=== PATIENT | female | born 1985 | race Caucasian/White ===

== ENCOUNTER → 2017-10-20 14:14 | Outpatient (CLI) | payer OTHER, SELFPAY ==
[2017-10-20 16:36] LABS: GTT (PREG) 1 Hour PP 50gm Dose 105 mg/dL (76-139)
== END ==
PROVIDERS: PCP Family Medicine; Visit Provider Family Medicine
DX: Z34.90 Encounter for supervision of normal pregnancy, unspecified, unspecified trimester (principal)
CPT/HCPCS: 36415; 82950; 85014

== ENCOUNTER → 2017-12-07 15:19 | Outpatient (CLI) | payer OTHER, SELFPAY ==
[2017-12-08 14:37] LABS: Strep Grp B PCR POS for Grp B Strep
== END ==
PROVIDERS: PCP Family Medicine; Visit Provider Family Medicine
DX: Z3A.36 36 weeks gestation of pregnancy (principal)
CPT/HCPCS: 87653

== ENCOUNTER 2018-01-04 01:20 | Inpatient (IN) | payer OTHER, SELFPAY ==
--- NOTE | 2018-01-04 02:13 | PM.OBHP.1 ---
OB HPI Date/Time Date of admission: 01/04/18 Date Patient Seen: 01/04/18 Time Patient Seen: 01:40 History of Present Condition Chief complaint: LABOR AND DELIVERY : 2 Para: 1 Estimated Date of Delivery: 12/30/17 Estimated Gestational Age (weeks): 40w5d Narrative: Stephanie Vasquez is a 32 year old at 40+5 weeks gestation. Patient presented to the center in active labor and was complete on admission. She received regular care without complications. History of Present care: good care (Care initiated at 12 weeks with 9 visits. Weight gain 27 lbs. ) Dating criteria: LMP confirmed by 1st trimester US Ultrasounds: normal mid trimester US Obstetrical complications: none Medical complications: none Preadmission Labs Blood type: AB (+) positive -: Antibody screen: negative, GBS status: positive, HBsAG: negative, HIV: negative, HSV 1: positive, HSV 2: negative and RPR/VDLR: negative -: Chlamydia screen: not detected and Gonorrhea screen: not detected -: Rubella: immune and Varicella: immune HCT: 38.5 Quad screen: Normal Urine: Negative 1 hr GTT: 105 Evaluation Evaluation Baseline heart rate: 150 Variability: Moderate (11-25) monitor accelerations: Present monitor decelerations: Absent Uterine Contraction Intensity: Strong/Firm Cervical dilation (cm): 10 Cervical effacement (%): 100 station: +1 PFSH Medical History Infertility (Chronic 2013) Neck pain (Chronic 2007) Severe depression (Chronic 2015) Shoulder pain (Chronic 2007) Tinea versicolor (Resolved) Surgical History Anesthesia complication (Resolved) History of eyelid surgery (Resolved ~2008) History of third molar tooth extraction (Resolved 2010) Family History Father Age: 65 Essential hypertension Mixed hyperlipidemia Grandfather Age: 86 Skin cancer Diabetes mellitus Heart disease Grandmother Colon cancer Grandmother MVA (motor vehicle accident) Grandfather Dementia Brother No problems noted. Mother No problems noted. Sister No problems noted. Sister No problems noted. 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 Status: Never smoker substance use type: does not use Meds Home Medications Medication Instructions Recorded Confirmed Type Breast Pump - Double Electric 1 dev SEE INSTRUCTIONS #1 12/18/15 01/04/18 Rx vitamin-ferrous fumarate 1 cap PO QDAY #90 cap 12/16/17 01/04/18 Rx 65 mg iron-folic acid 1 mg capsule Allergies Allergy/AdvReac Type Severity Reaction Status Date / Time egg Allergy Verified 01/04/18 04:22 Review of Systems Review of Systems All systems reviewed & are unremarkable except as noted in HPI and below Exam Const General: cooperative HENMT Head: normal to inspection Ears: hearing grossly normal bilaterally Nose: external nose normal Face and sinus: normal facial exam Eyes General: appearance normal, both eyes and all related structures Neck Neck: normal visual inspection Resp Effort & Inspection: normal respiratory effort and able to speak in complete sentences Cardio Rate: regular rate Rhythm: regular rhythm Extrem General: normal to inspection and no pedal edema Objective Labs Result Diagrams: 01/04/18 06:30 Assessment and Plan (1) 40 weeks gestation of : Current visit: Yes Status: Acute Plan: Plan: 32 year old at 40+5 weeks gestation in active labor. GBS+ though no time for IV for antibiotics. Patient delivered shortly after arrival in center.
--- NOTE | 2018-01-04 02:24 | PM.OBPRVD ---
Delivery date: 01/04/18 Intrapartal events: None Induction method: none Delivery monitor: external FHT Route of delivery: Laceration description: Vaginal - 1st Degree Estimated blood loss (mL): 200 Anesthesia type: None Narrative: VAGINAL DELIVERY NOTE BRIEF HISTORY: Patient is a 32-year-old at 40+5 weeks who gave on 01/04/18 at 01:55. BRAD: 12/30/17 Hospital problems: 40 weeks of GBS positive STAGE I: Labor Patient reports contractions began at home at approximately 11:00 p.m. on 01/03/18. Patient presented to the center and was found to be complete on admission at 1:31 a.m. on 01/04/18. Spontaneous rupture of membranes occurred at the time of delivery at 1:55 a.m.. Amniotic fluid was clear. Patient did not receive prophylactic antibiotics for GBS and she did not have an IV prior to delivery. Stage I duration: 2 hr and 31 min. STAGE II: Delivery Stage II duration: 24 min. Spontaneous vaginal delivery occurred at 1:55 a.m. on 01/04/18. Presentation was YEN. scores were nine at one minute and nine at five minutes. Notes: Vigorous male. No resuscitation required. STAGE III: Placenta/Cord Placenta delivered spontaneously after active management with a three vessel cord and intact at 2:02 a.m. on 01/04/18. There was one very small first-degree vaginal laceration at the posterior fourchette which was not repaired. EBL: 200 mL. The uterine fundus was firm to palpation after delivery. Hemostasis achieved. Needle and sponge counts were correct. The vagina was inspected and no items were left in situ.
[2018-01-04 04:09] VITALS: BP 112/64
[2018-01-04] MEDS: IBUPROFEN 600 MG TABLET PO ×3 (05:42→17:58)
[2018-01-04 07:07] LABS: Add Manual Diff / Slide Review NO; Basophils Percent Auto 0.1 % (0-2); Hematocrit 35.6 % (36-46); Hemoglobin 12.2 g/dL (12.0-16.0); Lymphocytes Percent Auto 16.9 % (25-40); Mean Corpuscular HGB Conc 34.4 % (30-36); Mean Corpuscular Hemoglobin 32.1 PG (26-34); Mean Corpuscular Volume 93.4 fL (80-100); Monocytes Percent Auto 4.3 % (3-14); Neutrophils Absolute Auto 11400 /uL (3000-5900); Neutrophils Percent Auto 78.7 % (50-75); Platelet Count 196 X10^3/uL (150-400); Red Blood Cell Count 3.81 X10^6/uL (4.0-5.2); Red Cell Distribution Width 12.8 % (11.6-14.8); White Blood Cell Count 14.5 X10^3/uL (4.5-11.0)
[2018-01-04] MEDS: DOCUSATE 250 MG CAPSULE PO (11:51)
[2018-01-05] MEDS: IBUPROFEN 600 MG TABLET PO ×2 (00:19→08:27)
[2018-01-05] MEDS: DOCUSATE 250 MG CAPSULE PO (08:27)
[2018-01-05 08:52] VITALS: BP 117/76; PULSE 80; RESP 16; TEMP 36.1
--- NOTE | 2018-01-05 10:06 | PM.OBDS.1 ---
Discharge Providers Date of admission: 01/04/18 01:20 Primary care physician: Carmen Hoyt DO Consults: 01/04/18 04:08 Consult to Cert Pharmacy Tech Routine Comment: Discharge provider: Carmen Hoyt DO Summary Date Patient Seen: 01/05/18 Time Patient Seen: 09:29 Hospital Course: Patient is a 32-year-old G2 now P2 who delivered at 40 and 5 weeks gestation on 01/04/18 via precipitous spontaneous vaginal delivery. Patient was complete on admission and delivered a vigorous male at 1:55 a.m.. She was GBS positive however did not receive prophylactic antibiotics due to precipitous delivery. course has been uncomplicated. Bleeding is moderate and decreasing. Pain well controlled with ibuprofen. going well. Patient is voiding and stooling without difficulty. Counseled patient to call for fevers, severe pain or bleeding through more than a pad an hour. Follow-up in clinic in six weeks. Exam Temperature 97.0? blood pressure 117/76 heart rate 80 respirations 16 General: Awake and alert, no acute distress. HEENT: NCAT, EOMI, moist oral mucosa CV: Regular rate and rhythm, no murmurs, rubs or gallops Lungs: CTAB, no wheezes, rales, or rhonchi Abdomen: Soft, nontender; bowel tones active; uterus firm 3 cm below umbilicus Extremities: Warm, no edema, 2+ pedal pulses bilaterally Discharge Diagnosis (1) 40 weeks gestation of : Status: Acute (2) Spontaneous vaginal delivery: Status: Acute Time Spent with Patient Total time spent providing and/or coordinating discharge services: Objective Labs Result Diagrams: 01/04/18 06:30 Discharge Plan Discharge Plan Patient Disposition: Home Discharge Med Rec/Prescriptions Prescriptions: New ibuprofen 600 mg Tablet 600 mg PO Q6HR PRN (Reason: Pain, Mild (1-3)) Qty: 30 RF: 0 docusate sodium 250 mg Capsule 250 mg PO DAILY PRN (Reason: constipation) Qty: 30 RF: 0 Continue Breast Pump - Double Electric 1 dev SEE INSTRUCTIONS Qty: 1 RF: 0 vit-iron fum-folic ac [Mynatal] 65 mg iron- 1 mg capsule 1 cap PO QDAY Qty: 90 RF: 3 Follow up/Referrals: Carmen Hoyt DO [Primary Care Provider] - 6 Weeks (Follow up with Dr. Hoyt at [facility] on Saturday 02/17 @ 11:15 am. ) Provider Discharge Instructions Diet: Diet as Tolerated Skin/Wound/Dressing Care Report to your healthcare provider any signs of infection, such as:: chills, fever, increased pain and unusual drainage Visit Report/Discharge Packet Stand Alone Forms: Discharge: Care Visit Report Forms: Stroke Signs & Symptoms Discharge Data Primary Care Provider: Carmen Hoyt Attending Provider: Carmen Hoyt Admit Date/Time: 01/04/18 01:20
== END 2018-01-05 11:00 | disposition home or self-care (01) | DRG 775 ==
PROVIDERS: Admitting Provider Family Medicine; PCP Family Medicine; Visit Provider Family Medicine
DX: O99.824 Streptococcus B carrier state complicating childbirth (principal); Z3A.40 40 weeks gestation of pregnancy; Z37.0 Single live birth; O62.3 Precipitate labor; O70.0 First degree perineal laceration during delivery
CPT/HCPCS: 59050; 59400; 85025; 86850; 86900; 86901; G0379

== ENCOUNTER → 2018-01-13 13:27 | Outpatient (CLI) | payer OTHER, SELFPAY ==
[2018-01-13 13:59] LABS: Appearance Urine UA CLEAR; Bilirubin Urine UA NEGATIVE (NEGATIVE); Color Urine UA YELLOW; Glucose Urine UA NEGATIVE (Normal); Ketones Urine UA NEGATIVE (NEGATIVE); Leukocyte Esterase Urine UA 2+ (NEGATIVE); Nitrite Urine UA Negative (Negative); Occult Blood Urine UA TRACE-INTACT (Negative); Protein Urine UA NEGATIVE (Negative); Specific Gravity Urine UA <=1.005 (1.000-1.035); Urobilinogen Urine UA 0.2 E.U./dL (0.2); pH Urine UA 6.5 (4.5-8.0)
[2018-01-13 14:10] LABS: Bacteria Urine Occasional (0-1); Culture Indicated Urine Specimen Cultured; RBC Urine 0-1/HPF (0-5/HPF); Squamous Epithelial Cell Urine 0-1 /HPF; WBC Urine 5-10/HPF (0-5/HPF)
== END ==
PROVIDERS: PCP Family Medicine; Visit Provider Family Medicine
DX: R30.0 Dysuria (principal)
CPT/HCPCS: 81001; 87077; 87086; 87147

== ENCOUNTER → 2019-11-22 09:58 | Outpatient (CLI) | payer OTHER, SELFPAY ==
--- NOTE | 2019-11-22 09:59 | DI.US.S_ITS ---
PROCEDURE: US OB <= 14 WEEKS FETUS INDICATIONS: DATING AND VIABILITY OUTSIDE/PRIOR DATING DATA: Last menstrual period (LMP): 09/29/2019. LMP-based estimated date of delivery (BRAD): 07/05/2020 . First dating scan (date and location): 11/22/2019 . Estimated date of delivery (BRAD) from first dating scan: 07/05/2020 . TECHNIQUE: Real-time scanning was performed of the fetus and maternal pelvic organs, with image documentation. Endovaginal scanning was also performed to better visualize the fetus and maternal ovaries. COMPARISON: None. FINDINGS: Embryo: [place]-rump length measures 1.4 cm corresponding to 7 weeks 5 days. Heart rate measures 162 beats per minute. Measurement variability in dating: +/- 4 weeks by LMP, +/- 7 days by mean sac diameter (use before 6 weeks gestation if crown-rump length not able to be measured), +/- 5 days by crown-rump length (up to 8 weeks 6 days gestation), +/- 7 days by crown-rump length (up to 13 weeks 6 days gestation). Maternal organs: Ovaries within normal limits, with left corpus luteal cyst . Limited images through the kidneys demonstrate no hydronephrosis. IMPRESSION: 7 week 5 day single living IUP. Dictated by: Ravinder MCGILL Interpreted: Saranya Perry MD on 11/22/2019 at 11:08 Approved by: Mian Dugan M.D. on 11/23/2019 at 12:21
== END ==
PROVIDERS: PCP Family Medicine; Referring Provider Family Medicine; Visit Provider Family Medicine
DX: Z34.91 Encounter for supervision of normal pregnancy, unspecified, first trimester (principal); Z3A.01 Less than 8 weeks gestation of pregnancy
CPT/HCPCS: 76801; 76817

== ENCOUNTER → 2019-12-05 14:57 | Outpatient (CLI) | payer OTHER, SELFPAY ==
[2019-12-05 16:05] LABS: Add Manual Diff / Slide Review NO; Basophils Absolute Auto 0 /uL (0-100); Basophils Percent Auto 0.3 % (0-2); Eosinophils Absolute Auto 100 /uL (0-450); Hematocrit 37.4 % (36-46); Hemoglobin 12.8 g/dL (12.0-16.0); Lymphocytes Absolute Auto 2700 /uL (1100-4500); Lymphocytes Percent Auto 32.5 % (25-40); Mean Corpuscular HGB Conc 34.3 % (30-36); Mean Corpuscular Hemoglobin 32.6 PG (26-34); Monocytes Absolute Auto 500 /uL (0-900); Neutrophils Absolute Auto 5000 /uL (1500-7000); Neutrophils Percent Auto 60.2 % (50-75); Platelet Count 220 X10^3/uL (150-400); Red Blood Cell Count 3.93 X10^6/uL (4.0-5.2); Red Cell Distribution Width 12.2 % (11.6-14.8); White Blood Cell Count 8.3 X10^3/uL (4.5-11.0)
[2019-12-06 06:36] LABS: RPR Screen Non Reactive (Non Reactive)
[2019-12-06 09:39] LABS: Varicella IgG Antibody 463 index (Immune >165)
[2019-12-06 19:15] LABS: Hepatitis B Surface Antigen NEGATIVE s/c (NEGATIVE); Rubella Antibody IgG 48.9 IU/mL (>15)
[2019-12-06 19:29] LABS: HIV 1 & 2 Ab/Ag 4th Gen Combo NEGATIVE (NEGATIVE); Hep C Virus Ab w/Reflex Quant NEGATIVE s/c (NEGATIVE)
== END ==
PROVIDERS: PCP Family Medicine; Referring Provider Family Medicine; Visit Provider Family Medicine
DX: Z34.90 Encounter for supervision of normal pregnancy, unspecified, unspecified trimester (principal)
CPT/HCPCS: 36415; 80055; 86787; 86803; 86850; 86900; 86901; 87389

== ENCOUNTER → 2020-01-29 11:00 | Outpatient (CLI) | payer OTHER, SELFPAY ==
[2020-02-05 10:08] LABS: AFP, Serum 7.7 ng/mL (.); Calc Gestational Age EDD (.); Estriol, Free <0.02 ng/mL (.); Inhibin A, Dimeric <30.00 pg/mL (.); Inhibin A, MoM See interpretation. (.); Maternal Ethnicity Caucasian (.); Maternal Weight 143 lbs (.); Number of Fetuses No (.); OSBR Risk 1 IN 10000 (.); Results Report (.); Test Results See interpretation. (.); hCG, MoM See interpretation. (.); hCG, Serum <100 mIU/mL (.)
== END ==
PROVIDERS: PCP Family Medicine; Referring Provider Family Medicine; Visit Provider Family Medicine
DX: Z34.90 Encounter for supervision of normal pregnancy, unspecified, unspecified trimester (principal); Z3A.16 16 weeks gestation of pregnancy
CPT/HCPCS: 36415; 82105; 82677; 84702; 86336

== ENCOUNTER → 2020-02-04 09:16 | Outpatient (CLI) | payer OTHER, SELFPAY ==
--- NOTE | 2020-02-04 09:16 | DI.US.S_ITS ---
PROCEDURE: US OB >= 14 WEEKS FETUS INDICATIONS: Anatomy scan OUTSIDE/PRIOR DATING DATA: Last menstrual period (LMP): 09/29/2019 . LMP-based estimated date of delivery (BRAD): 07/05/2020 . First dating scan (date and location): 11/22/19 . Estimated date of delivery (BRAD) from first dating scan: 07/05/2020 . TECHNIQUE: Real-time scanning was performed of the fetus, with image documentation and biometric measurements. COMPARISON: [facility], OB <= 14 WEEKS FETUS, 11/22/2019, 10:12. FINDINGS: General: A single living intrauterine gestation is present. Presentation: Breech. Placenta: Placental position is posterior , without previa. Amniotic fluid index: 12.1 cm cm, normal range is 5-24 cm. Largest pocket measures 3.5 cm. heart rate: 136 beats per minute. Maternal cervical canal: 3.6 cm long. Normal lower limit is 2.5 cm. biometrics: Biparietal diameter: 4.1 cm 18 weeks 2 days Head circumference: 15.2 cm 18 weeks 1 day Abdominal circumference: 13.3 cm 18 weeks 6 days Femur length: 2.8 cm 18 weeks 3 days Estimated gestational age from initial scan: 18 weeks 2 days Composite gestational age from present scan: 18 weeks 3 days Estimated weight and percentile: 248g 65th percentile Measurement variability for biometric dating: +/- 7 days from 14 weeks to 15 weeks 6 days gestation, +/- 10 days from 16 weeks to 21 weeks 6 days gestation, +/- 2 weeks from 22 weeks to 27 weeks 6 days gestation, +/- 3 weeks for 28 weeks gestation or later. weight reference: 4500 g or EFW >90/95% is considered macrosomia or large for gestational age. EFW <10% is small for gestational age. EFW 5% or less is considered intra-uterine growth restriction. Anatomic survey: Neuro: Ventricles are non-dilated at less than 10 mm. Cisterna magna is normal at 3-11 mm. Cerebellum is normal in size and morphology. Nuchal skin fold: Normal at less than 6 mm between 14-21 weeks gestational age. Face: Nose and lips, facial profile are not well seen. Spine: Not well seen. Heart: 4-chambered heart is present, with normal ventricular outflow tracts. Diaphragm: Diaphragm is intact. Stomach: Left-sided stomach is present. Kidneys: No hydronephrosis. Normal is less than 5 mm in 2nd trimester, less than 7 mm in 3rd trimester. Cord: 3-vessel cord has orthotopic insertion. Bladder: Normal in size. Extremities: All 4 extremities identified. IMPRESSION: 1. Single live intrauterine with ultrasound gestational age today of 18 weeks 3 days compared 18 weeks 2 days from initial ultrasound. Ultrasound BRAD is 07/05/20. 2. profile as well as spine are not well seen. Recommend interval follow-up. Dictated by: Nadia Kapoor M.D. on 02/04/2020 at 13:09 Approved by: Nadia Kapoor M.D. on 02/04/2020 at 13:14
== END ==
PROVIDERS: PCP Family Medicine; Referring Provider Family Medicine; Visit Provider Family Medicine
DX: Z36.89 Encounter for other specified antenatal screening (principal); Z3A.18 18 weeks gestation of pregnancy
CPT/HCPCS: 76811

== ENCOUNTER → 2020-02-11 16:24 | Outpatient (CLI) | payer OTHER, SELFPAY ==
[2020-02-15 21:22] LABS: AFP, Serum 52.7 ng/mL (.); Estriol, Free 1.88 ng/mL (.); Inhibin A, Dimeric 126.83 pg/mL (.); Inhibin A, MoM 0.72 (.); Maternal Ethnicity Caucasian (.); Maternal Weight 152 lbs (.); Number of Fetuses No (.); OSBR Risk 1 IN 10000 (.); Results Report (.); Test Results *Screen Negative* (.); hCG, MoM 0.35 (.); hCG, Serum 8822 mIU/mL (.)
== END ==
PROVIDERS: PCP Family Medicine; Referring Provider Family Medicine; Visit Provider Family Medicine
DX: O28.0 Abnormal hematological finding on antenatal screening of mother (principal)
CPT/HCPCS: 36415; 82105; 82677; 84702; 86336

== ENCOUNTER → 2020-04-24 08:56 | Outpatient (CLI) | payer OTHER, SELFPAY ==
[2020-04-24 10:34] LABS: Hematocrit 34.7 % (36-46); Hemoglobin 11.8 g/dL (12.0-16.0)
[2020-04-24 10:48] LABS: GTT (PREG) 1 Hour PP 50gm Dose 126 mg/dL (76-139)
== END ==
PROVIDERS: PCP Family Medicine; Referring Provider Family Medicine; Visit Provider Family Medicine
DX: Z34.90 Encounter for supervision of normal pregnancy, unspecified, unspecified trimester (principal); Z3A.28 28 weeks gestation of pregnancy
CPT/HCPCS: 36415; 82950; 85014; 85018

== ENCOUNTER → 2020-06-09 13:24 | Outpatient (CLI) | payer OTHER, SELFPAY ==
[2020-06-10 12:46] LABS: Strep Grp B PCR POS for Grp B Strep
== END ==
PROVIDERS: PCP Family Medicine; Visit Provider Family Medicine
DX: Z34.90 Encounter for supervision of normal pregnancy, unspecified, unspecified trimester (principal); Z3A.36 36 weeks gestation of pregnancy
CPT/HCPCS: 87653

== ENCOUNTER 2020-06-10 23:19 | Observation (INO) | payer OTHER, SELFPAY | END 2020-06-11 01:15 | disposition home or self-care (01) | PROVIDERS: Admitting Provider Obstetrics & Gynecology; PCP Family Medicine; Referring Provider Obstetrics & Gynecology; Visit Provider Obstetrics & Gynecology | DX: Z03.71 Encounter for suspected problem with amniotic cavity and membrane ruled out (principal); Z3A.36 36 weeks gestation of pregnancy; R10.2 Pelvic and perineal pain | CPT/HCPCS: 59025; 84112; G0378; G0379 ==

== ENCOUNTER → 2020-06-30 14:22 | Outpatient (CLI) | payer OTHER, SELFPAY ==
[2020-06-30 14:54] LABS: COVID19 -Nasal RAPID Negative (Negative)
== END ==
PROVIDERS: PCP Family Medicine; Visit Provider Family Medicine
DX: Z20.822 Contact with and (suspected) exposure to COVID-19 (principal)
CPT/HCPCS: 87635

== ENCOUNTER 2020-07-07 15:11 | Outpatient (CLI) | payer OTHER, SELFPAY ==
--- NOTE | 2020-07-07 | DI.US.S_ITS ---
PROCEDURE: US OB LIMITED INDICATIONS: AMNIOTIC FLUID INDEX OUTSIDE/PRIOR DATING DATA: Last menstrual period (LMP): 09/29/2019. LMP-based estimated date of delivery (BRAD): 07/05/2020. First dating scan (date and location): 11/22/2019. Estimated date of delivery (BRAD) from first dating scan: 07/05/2020. TECHNIQUE: Real-time scanning was performed of the fetus, with image documentation. Endovaginal scannin Ursula is COMPARISON: None. FINDINGS: A single living intrauterine gestation is present. Presentation: Vertex Placenta: Placental position is posterior, without previa. Amniotic fluid index: 10.2 cm, normal range is 5-24 cm. heart rate: 162 beats per minute. Maternal cervical canal: Not well seen. Estimated gestational age from initial scan: 40 weeks, 2 days. chest, bilateral kidneys , stomach and urinary bladder are visualized and are within normal limits. IMPRESSION: Single live intrauterine with fetus in vertex presentation. heart rate is 162 beats per minute. Normal amount of amniotic fluid. Dictated by: Quinn Miller M.D. on 07/07/2020 at 15:02 Approved by: Quinn Miller M.D. on 07/07/2020 at 15:12
--- NOTE | 2020-07-07 15:59 | PM.OBTRLD ---
Visit Information Visit Information Date of evaluation: 07/07/20 Primary OB Provider: Carmen Hoyt Reason for Evaluation: Yes non-stress test non-stress test reason: other (postdates) Vital Signs Vital Signs: Temperature 36.4? blood pressure 125/79 heart rate 87 PFSH Medical History (Updated 07/07/20 @ 17:04 by Carmen Hoyt DO) Abnormal Pap smear of cervix (~2008) Frequent headaches HPV (human papilloma virus) infection (~2008) HSV-1 infection Infertility (2013) Neck pain (2007) Severe depression (2015) Shoulder pain (2007) Tinea versicolor Surgical History Anesthesia complication History of eyelid surgery (~2008) History of third molar tooth extraction (2010) Family History Father Age: 68 Essential hypertension Mixed hyperlipidemia Grandfather Age: 89 Skin cancer Diabetes mellitus Heart disease Coronary stent patent Prostate cancer Prostate cancer metastatic to lung Grandmother Colon cancer Grandmother MVA (motor vehicle accident) Grandfather Dementia Brother No problems noted. Mother No problems noted. Sister No problems noted. Sister No problems noted. 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 DAXA was 10.2. NST reactive. Will plan for repeat NST at the end of the week since she will be nearly 41 weeks. Induction scheduled for 07/14/20 if not delivered by then. OB Disposition: home
== END 2020-07-07 16:15 | disposition home or self-care (01) ==
LOC: LABOR 16:08 → OB 07-08 07:04
PROVIDERS: PCP Family Medicine; Referring Provider Family Medicine; Visit Provider Family Medicine
DX: O48.0 Post-term pregnancy (principal); Z3A.40 40 weeks gestation of pregnancy
CPT/HCPCS: 59025; 76815; G0378; G0379

== ENCOUNTER 2020-07-07 23:05 | Outpatient (CLI) | payer OTHER, SELFPAY | END 2020-07-08 00:35 | disposition home or self-care (01) | LOC: OB 07-08 07:04 | PROVIDERS: PCP Family Medicine; Referring Provider Family Medicine; Visit Provider Family Medicine | DX: O48.0 Post-term pregnancy (principal); Z3A.33 33 weeks gestation of pregnancy | CPT/HCPCS: 59025; G0378; G0379 ==

== ENCOUNTER 2020-07-10 11:11 | Outpatient (CLI) | payer OTHER, SELFPAY ==
--- NOTE | 2020-07-10 11:44 | PM.OBTRLD ---
Visit Information Visit Information Date of evaluation: 07/10/20 Primary OB Provider: Carmen Hoyt Reason for Evaluation: Yes non-stress test non-stress test reason: other (Post dates) Vital Signs Vital Signs: Temperature 36.3? 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 Mother No problems noted. Sister No problems noted. Sister No problems noted. 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 NST reactive. She was holli though contractions were mild. SVE similar to last exam. She is scheduled for post-dates induction on 07/14/20 if not delivered before then. OB Disposition: home
== END 2020-07-10 13:00 | disposition home or self-care (01) ==
LOC: LABOR 12:34 → OB 07-11 10:41
PROVIDERS: PCP Family Medicine; Referring Provider Family Medicine; Visit Provider Family Medicine
DX: O48.0 Post-term pregnancy (principal); Z3A.40 40 weeks gestation of pregnancy
CPT/HCPCS: 59025; 59050; G0378; G0379

== ENCOUNTER 2020-07-14 07:11 | Inpatient (IN) | payer OTHER, SELFPAY ==
--- NOTE | 2020-07-14 08:21 | PM.OBHP.1 ---
OB HPI Date/Time Date of admission: 07/14/20 Date Patient Seen: 07/14/20 Time Patient Seen: 08:00 History of Present Condition Chief complaint: LABOR : 3 Para: 2 Estimated Date of Delivery: 07/05/20 Estimated Gestational Age (weeks): 41w2d Narrative: Stephanie Vasquez is a 34 year old at 41 weeks and 2 days here for postdates induction. BRAD by LMP confirmed by first trimester US. has been uncomplicated. Indications Indication for induction OB: post dates History of Present care: good care, initiated at week # (9), number of visits (13) and pounds weight gain (28) Dating criteria: LMP confirmed by 1st trimester US Ultrasounds: normal 1st trimester US and normal mid trimester US Obstetrical complications: none Medical complications: none Preadmission Labs Blood type: AB (+) positive -: Antibody screen: negative, GBS status: positive, HBsAG: negative, HIV: negative and RPR/VDLR: negative -: Rubella: immune and Varicella: immune HCT: 35.1 HCAB: negative Quad screen: Normal (initial quad abnormal however repeat normal) 1 hr GTT: 126 Prior (ies) History: 01/16/16 40 weeks , 14 hr labor, 7 lb 4 oz, male, Merged With [facility], Dr. Avila, breastfed 15 months, [place] goes by Giuseppe 01/04/18 40.5 weeks , 2 hr labor, 6 lb 13.35 oz, male, Merged With [facility], Dr. 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 Mother No problems noted. Sister No problems noted. Sister No problems noted. 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 [employer] needs: No Smoking Status: Never smoker alcohol intake: current substance use type: does not use Meds Home Medications and Allergies Home Medications Medication Instructions Recorded Confirmed Type prenat.vits,melanie,[id number] 1 tab PO DAILY #100 tab MDD 1 10/30/19 06/30/20 Rx Allergies Allergy/AdvReac Type Severity Reaction Status Date / Time No Known Drug Allergies Allergy Verified 06/10/20 23:24 Review of Systems Review of Systems ROS: Yes All systems reviewed with the patient and are negative except as otherwise documented Exam Const General: healthy appearing and comfortable HENMT Head: normal to inspection Ears: hearing grossly normal bilaterally Nose: external nose normal Face and sinus: normal facial exam Mouth: oral mucosae normal Eyes General: appearance normal, both eyes and all related structures Neck Neck: normal visual inspection Resp Effort & Inspection: normal respiratory effort Auscultation: clear to auscultation bilaterally Cardio Rate: regular rate Rhythm: regular rhythm Heart Sounds: no murmurs GI Other: Gravid External Female Exam: normal external appearance Manual OB Exam: dilated 3, effaced 50% and station -2 Presentation: vertex Estimated Weight (lbs): 7 Back/Spine/Pelvis Back: normal to inspection Skin General: no rashes or lesions noted Extrem General: normal to inspection and no pedal edema Assessment and Plan Assessment and Plan Assessment and Plan narrative: 34-year-old at 41 weeks and 2 days gestation here for post-dates induction. She is GBS positive with a history of rapid labor. Will begin GBS prophylaxis with penicillin now. After first dose of antibiotics is and, will start low-dose Pitocin. Consider AROM after second dose of antibiotics if not yet in active labor. Patient desires natural childbirth with as few interventions as possible. Admission COVID test pending.
[2020-07-14 08:29] LABS: Add Manual Diff / Slide Review NO; Basophils Absolute Auto 0 /uL (0-100); Basophils Percent Auto 0.5 % (0-2); Eosinophils Absolute Auto 100 /uL (0-450); Eosinophils Percent Auto 0.8 % (2-4); Hematocrit 35.1 % (36-46); Hemoglobin 12.2 g/dL (12.0-16.0); Lymphocytes Absolute Auto 2200 /uL (1100-4500); Lymphocytes Percent Auto 28.6 % (25-40); Mean Corpuscular HGB Conc 34.7 % (30-36); Mean Corpuscular Hemoglobin 32.7 PG (26-34); Mean Corpuscular Volume 94.2 fL (80-100); Monocytes Absolute Auto 500 /uL (0-900); Neutrophils Absolute Auto 5000 /uL (1500-7000); Neutrophils Percent Auto 64.1 % (50-75); Platelet Count 207 X10^3/uL (150-400); Red Blood Cell Count 3.72 X10^6/uL (4.0-5.2); Red Cell Distribution Width 12.7 % (11.6-14.8); White Blood Cell Count 7.7 X10^3/uL (4.5-11.0)
[2020-07-14] MEDS: LACTATED RINGERS 1,000 ML 100 ML IV (08:31)
[2020-07-14] MEDS: PENICILLIN G POTASSIUM 5,000,000 UNIT in DEXTROSE 5% IN WATER 250 ML IV (08:32)
[2020-07-14 09:23] VITALS: BP 117/77
[2020-07-14 09:24] LABS: COVID19 - ADMIT (NP swab/PCR) Negative (Negative)
[2020-07-14] MEDS: OXYTOCIN PREMIX 30 UNIT/500 ML PLAST..BAG IV (09:37)
[2020-07-14] MEDS: PENICILLIN G POTASSIUM 3,000,000 UNIT/50 ML FROZ.PIGGY 100 UNIT IV ×2 (12:32→17:04)
--- NOTE | 2020-07-14 13:14 | PM.OBPNLAB ---
Date/Time Date Patient Seen: 07/14/20 Time Patient Seen: 13:14 Pain Control Pain control: tolerating well Comments: Feels mild cramps with contractions. Does not want AROM. Pelvic Exam Dilation (cm): 3 Effacement (%): 75 station: -1 Contractions Pitocin rate (mU/min): 3 Contraction frequency (min): 2 Contraction pattern: Regular Status status: Category l Heart Rate Baseline: 130 Monitor Accelerations: Present Monitor Decelerations: Absent Monitor Variability: Moderate Assessment and Plan Assessment: induction ongoing Plan: continuous present management Comments: Continue pitocin. Recheck in 2 hours, patient may be more amenable to AROM at that time if feeling more active.
--- NOTE | 2020-07-14 17:07 | PM.OBPNLAB ---
Date/Time Date Patient Seen: 07/14/20 Time Patient Seen: 17:00 Pain Control Pain control: tolerating well Comments: Feeling contractions though still not painful. Discussed AROM vs discharge home. Her is not comfortable going home. Will proceed with AROM after much discussion of risks and benefits. Pelvic Exam Dilation (cm): 4 Effacement (%): 70 station: -1 Amniotic membrane status: Ruptured (AROM small amount of clear fluid) Contractions Contraction frequency (min): 2 Contraction pattern: Regular Status status: Category l Heart Rate Baseline: 130 Monitor Accelerations: Present Monitor Decelerations: Absent Monitor Variability: Moderate Assessment and Plan Assessment: induction ongoing Plan: continuous present management
--- NOTE | 2020-07-14 20:17 | PM.OBPRVD ---
Labor & Delivery Delivery date: 07/14/20 Induction method: per pitocin protocol Delivery augmentation: rupture of membranes Delivery monitor: external FHT Route of delivery: L&D Laceration Description: None Estimated blood loss (mL): 250 Anesthesia Type: None Narrative: VAGINAL DELIVERY NOTE Date [] BRIEF HISTORY: [] is a []-year-old GP at [] weeks who gave on [] at []. BRAD: [] Hospital problems: STAGE I: Labor The patient labored for [] hour(s) and [] minute(s). Labor: [] Indications for Induction: [] Induction agents: [] Augmentation: [] [] rupture of membranes occurred at [] on @[facility][]. Amniotic fluid: []. She reached full dilation at []. Analgesia for labor was []. STAGE II: Delivery The second stage of labor lasted [] hours and [] minute(s). [] occurred at [] on []. Presentation was [] and [] orientation. A [] baby was born. Birthweight was []. scores were [] at one minute and [] at five minutes. Notes: STAGE III: Placenta/Cord The third stage of labor lasted [] minute(s). Placental delivery was [] and it appeared []. Cord features: [] and notable for cord complications of []. Perineal laceration: [] Periurethral laceration: [] Labial laceration: [] Sulcus laceration: [] Vaginal laceration: [] Cervical laceration: [] Repair: [] Complications: [] EBL: [] mL. Needle and sponge counts were correct. The vagina was inspected and no items were left in situ. [] was doing well with [], her and [] at bedside. Baby 1: Infant gender: Female Presentation: vertex Position: Left Occiput Anterior Placenta delivery description: Spontaneous Cord Vessel Description: 3 Vessels score (1 min): 9 score (5 min): 9 weight: 7 lb 5.7 oz
[2020-07-14] MEDS: IBUPROFEN 600 MG TABLET PO (20:40)
[2020-07-14] MEDS: OXYTOCIN 10 UNIT/ML VIAL IM (20:41)
[2020-07-15] MEDS: IBUPROFEN 600 MG TABLET PO ×3 (02:33→14:56)
[2020-07-15] MEDS: ACETAMINOPHEN 325 MG TABLET 650 MG PO (06:47)
--- NOTE | 2020-07-15 08:23 | PM.OBDS.1 ---
Discharge Providers Provider Date of admission: 07/14/20 07:11 Discharge Date: 07/15/20 Primary care physician: Carmen Hoyt DO Consults: 07/15/20 20:18 Consult to Switchboard Troubleshooter Routine Comment: Discharge provider: Carmen Hoyt DO Summary Hospital Course Date Patient Seen: 07/15/20 Time Patient Seen: 08:00 Diagnoses: Spontaneous vaginal delivery GBS positive 41 weeks of Hospital Course: Patient is a 34 year old G3-now-P3 after uncomplicated at 41 weeks and 2 days on 07/14/20. Patient was brought in for postdates induction. She received pitocin per protocol as well as penicillin for GBS prophylaxis. She progressed well after AROM for clear fluid and went on to deliver a vigorous female . There were no lacerations. course uncomplicated. She is eating, ambulating voiding and passing flatus. Vaginal bleeding is decreasing as expected. Pain controlled with ibuprofen only. going well, no issues in the . Advised patient to call for fevers, severe pain or bleeding through more than a pad an hour. Follow up in clinic in 6 weeks. Peripartum Data Delivery Method: Natural Vaginal Laceration Description: None complications: none 1: Gender: Female Disposition of : home Discharge Diagnosis (1) 41 weeks gestation of : Status: Acute (2) Spontaneous vaginal delivery: Status: Acute Status at Discharge Cognitive/behavioral status at discharge: at baseline, oriented Functional status at discharge: independent ambulation Overall status at discharge: patient is back to baseline Time Spent with Patient Time attestation: Total time spent providing and/or coordinating discharge services: Time spent: Less than 30 minutes Objective Labs Result Diagrams: 07/14/20 08:15 Labs: Laboratory Results - last 24 hr 07/14/20 07/14/20 07/14/20 08:15 08:15 08:15 WBC 7.7 RBC 3.72 L Hgb 12.2 Hct 35.1 L MCV 94.2 MCH 32.7 MCHC 34.7 RDW 12.7 Plt Count 207 Neut % (Auto) 64.1 Lymph % (Auto) 28.6 [place] % (Auto) 6.0 Eos % (Auto) 0.8 L Baso % (Auto) 0.5 Neut # (Auto) 5000 Lymph # (Auto) 2200 [place] # (Auto) 500 Eos # (Auto) 100 Baso # (Auto) 0 SARS-CoV-2 (PCR) Negative Blood Type AB Positive Antibody Screen Negative Exam Vital Signs (past 8 hours): Temperature 97.8? blood pressure 111/65 heart rate 61 respirations 16 Narrative Exam Narrative: General: Awake and alert, no acute distress. HEENT: NCAT, EOMI, moist oral mucosa CV: Regular rate and rhythm, no murmurs, rubs or gallops Lungs: CTAB, no wheezes, rales, or rhonchi Abdomen: Soft, nontender; bowel tones active; uterus firm 1 cm below umbilicus Extremities: Warm, no edema Discharge Plan Discharge Plan Patient Disposition: Home Discharge orders & Medications Prescriptions: New docusate sodium [DOK] 100 mg Capsule 100 mg PO DAILY Qty: 30 RF: 0 ibuprofen 600 mg Tablet 600 mg PO Q6HR PRN (Reason: Pain, Mild (1-3)) Qty: 30 RF: 0 Continued prenat.vits,melanie,isl-aegp-doidz Tablet 1 tab PO DAILY MDD 1 Qty: 100 RF: 3 Follow up/Referrals: Carmen Hoyt DO [Primary Care Provider] - 6 Weeks Visit Report/Discharge Packet Visit Report Forms: Patient Portal/API, Stroke Signs & Symptoms Discharge Data Primary Care Provider: Carmen Hoyt
[2020-07-15] MEDS: PRENATAL VIT,CALC/IRON/FOLIC 1 TABLET 1 TAB PO (08:50)
[2020-07-15] MEDS: DOCUSATE 100 MG CAPSULE PO (08:50)
[2020-07-15 16:25] LABS: Hematocrit 33.9 % (36-46); Hemoglobin 11.6 g/dL (12.0-16.0)
[2020-07-15 18:00] VITALS: BP 117/77; PULSE 70; RESP 18; TEMP 36.7
== END 2020-07-15 18:55 | disposition home or self-care (01) | DRG 807 ==
PROVIDERS: Admitting Provider Family Medicine; PCP Family Medicine; Referring Provider Family Medicine; Visit Provider Family Medicine
DX: O48.0 Post-term pregnancy (principal); Z37.0 Single live birth; Z3A.41 41 weeks gestation of pregnancy; O99.824 Streptococcus B carrier state complicating childbirth; Z20.822 Contact with and (suspected) exposure to COVID-19
CPT/HCPCS: 36415; 59050; 59400; 85014; 85018; 85025; 86850; 86900; 86901; 87635; G0379; J2540; J2590

== ENCOUNTER → 2020-09-17 09:39 | Outpatient (CLI) | payer OTHER, SELFPAY ==
[2020-09-17] MEDS: COVID-19 VACC, Ad26(JANSSEN)/PF 0.5 ML IM (09:48)
== END ==
PROVIDERS: PCP Family Medicine; Visit Provider Internal Medicine
DX: Z23 Encounter for immunization (principal)
CPT/HCPCS: 0031A; 91303

== ENCOUNTER → 2022-08-25 17:21 | Outpatient (CLI) | payer OTHER, SELFPAY ==
[2022-08-25 17:51] LABS: Add Manual Diff / Slide Review NO; Basophils Absolute Auto 100 /uL (0-100); Basophils Percent Auto 0.8 % (0-2); Eosinophils Absolute Auto 100 /uL (0-450); Eosinophils Percent Auto 1.1 % (2-4); Hematocrit 36.4 % (36-46); Hemoglobin 12.5 g/dL (12.0-16.0); Lymphocytes Absolute Auto 2600 /uL (1100-4500); Lymphocytes Percent Auto 40.7 % (25-40); Mean Corpuscular HGB Conc 34.4 % (30-36); Mean Corpuscular Hemoglobin 33.1 PG (26-34); Mean Corpuscular Volume 96.1 fL (80-100); Monocytes Absolute Auto 400 /uL (0-900); Monocytes Percent Auto 6.5 % (3-14); Neutrophils Absolute Auto 3300 /uL (1500-7000); Neutrophils Percent Auto 50.9 % (50-75); Platelet Count 218 X10^3/uL (150-400); Red Blood Cell Count 3.79 X10^6/uL (4.0-5.2); Red Cell Distribution Width 13.2 % (11.6-14.8); White Blood Cell Count 6.5 X10^3/uL (4.5-11.0)
[2022-08-25 18:11] LABS: Alanine Aminotransferase 18 IU/L (<35); Albumin 4.2 g/dL (3.5-5.0); Albumin Globulin Ratio 1.5 (1.0-2.8); Alkaline Phosphatase 58 U/L (38-126); Aspartate Aminotransferase 23 IU/L (14-36); BUN Creatinine Ratio 18.8 (6-22); Bilirubin Total 0.2 mg/dL (0.2-1.3); Blood Urea Nitrogen 16 mg/dL (7-17); Carbon Dioxide 31 mmol/L (22-32); Chloride 101 mmol/L (98-107); Estimated Glomerular Filt Rate > 60 mL/min (>60); Globulin 2.8 g/dL (1.7-4.1); Glucose 107 mg/dL (70-100); HEMOLYSIS < 15 (0-50); Potassium 3.6 mmol/L (3.4-5.1); Sodium 138 mmol/L (137-145)
== END ==
PROVIDERS: PCP Family Medicine; Referring Provider Family Medicine; Visit Provider Family Medicine
DX: D64.9 Anemia, unspecified (principal); R00.2 Palpitations
CPT/HCPCS: 36415; 80053; 84443; 85025